=== PATIENT | male | born 1960 | race Two or more races ===

== ENCOUNTER 2023-02-21 21:04 | Emergency (ER) | payer BC, MEDICAID ==
[~2023-02-21] VITALS: Ht 170.2 cm; Wt 167.0 kg
[2023-02-22] MEDS ORDERED: PRED20TA2 PO (00:39)
[2023-02-22] MEDS ORDERED: AZITTAB PO (00:39)
[2023-02-22] MEDS ORDERED: ALBUAER3 IN (00:39)
[2023-02-22 00:40] VITALS: BP 161/97
== END 2023-02-22 00:50 | disposition home or self-care (01) ==
LOC: ER 21:04
DX: U07.1 COVID-19 (principal); J12.82 Pneumonia due to coronavirus disease 2019; J10.1 Influenza due to other identified influenza virus with other respiratory manifestations; E11.9 Type 2 diabetes mellitus without complications; E78.5 Hyperlipidemia, unspecified; I10 Essential (primary) hypertension
CPT/HCPCS: 36415; 71045; 87070; 87426; 87804; 87880